=== PATIENT | male | born 1930 ===

== ENCOUNTER 2016-10-30 09:03 | Emergency (ER) | payer OTHER ==
[~2016-10-30] VITALS: Ht 172.7 cm; Wt 67.0 kg
[~2016-10-30 09:03] MED LIST: EPINEPHrine 0.1 MG/ML SYG ONE; ETOMIDATE 20 MG INJ ONE; NA BICARBONATE 8.4% 50 ML SYG ONE; NORepinephrine 8MG/250 ML BAG ONE
[2016-10-30] MEDS ORDERED: SODIUM CHLORIDE 0.9% 1L BAG IV* STA (09:17)
[2016-10-30] MEDS ORDERED: CEFEPIME 2GM/50 ML (PMX) 50 ML IVPB STA (09:17)
[2016-10-30 09:18] VITALS: Ht 172.7 cm; Wt 67.0 kg
--- NOTE | 2016-10-30 09:34 | RADRPT ---
PROCEDURE: XR Chest AP portable CLINICAL INDICATION: Possible sepsis, fcode stemi TECHNIQUE: An AP portable radiograph of the chest was submitted. COMPARISON: None. FINDINGS: Support Hardware: None Cardiovascular: The pacemaker generator is implanted within the right chest wall and dual lead super ior satisfactory position. The heart is moderately enlarged, the aorta appears tortuous while the t he peripheral pulmonary vasculature is unremarkable. Lung [place]: There is a diffuse relative increase in density at the right lung suspicious for a laye ring of pleural fluid. Subsegmental atelectatic changes suggested at the medial right lung base. Pleural Spaces: No pneumothorax is evident. Osseous Structures: The osseous elements are rarefied. Soft Tissues: The soft tissues appear unremarkable. IMPRESSION: 1. Cardiomegaly with aortic tortuosity without CHF. A pacemaker and dual leads are noted to be in place. 2. Mild diffuse increase in density to the right hemithorax suspicious for layering of pleural flui d with subsegmental atelectasis seen at the medial right lung base. Physician Niles Date Time Electronically viewed and signed by Physician Niles on 10/30/2016 09:34 /
[2016-10-30 10:02] LABS: ADD SCAN DIFF NO
--- NOTE | 2016-10-30 10:04 | ERA ---
ER Documentation Chief Complaint Date/Time DATE: 10/30/16 TIME: 09:59 Chief Complaint had 2 episodes while on the toilet HPI HPI: Patient is a 86-year-old male with history of diabetes who presents with sudden onset, intermittent, severe generalized weakness with episodes of syncope. Patient was recently seen in the ER last week for fever and found to have pneumonia. He was sent home with Levaquin 750 mg every other day. Last fever 48 hours ago. Last night the patient was noted to have excessive somnolence and to feel generally weak. Today he was found by his caregiver sitting on the toilet looking pale and became unresponsive, with shaking activity. En route to the ER EMS notes that the patient had a second episode of approximately 30 seconds of unresponsiveness. There is no seizure activity noted. Patient currently complains of shortness of breath, denies pain, denies fever, denies vomiting, denies nausea. ROS All systems reviewed and are negative except as per history of present illness. Allergies Allergies: Coded Allergies: No Known Allergy (Unverified , 10/30/16) PMhx/Soc Past medical history: Diabetes, no history of MS or CHF, no history of cancer Past surgical history: Pacemaker Social history: Denies smoking Hx Alcohol Use: No Hx Substance Use: No Hx Tobacco Use: No Smoking Status: Current every day smoker FmHx Family History: No coronary disease, No diabetes Physical Exam Vitals Vital Signs Date Time Temp Pulse Resp B/P Pulse Ox O2 Delivery O2 Flow Rate FiO2 10/30/16 10:32 20 100 10/30/16 09:30 Non Rebreather 12 10/30/16 09:18 97.7 102 30 62/49 98 Physical Exam Const: Lethargic, ill-appearing Head: Atraumatic Eyes: Normal Conjunctiva, no pallor or icterus ENT: Normal External Ears, Nose and Mouth. Neck: Full range of motion. No meningismus. Resp: Right lower lung field rales, no wheezes Cardio: Tachycardia, regular rhythm, no murmurs, no gallop Abd: Soft, non tender, non distended. No pulsatile mass Skin: No petechiae or rashes Back: No midline or flank tenderness Ext: No cyanosis, or edema Neur: Awake and alert, cranial nerves II through XII intact bilaterally, motor function intact grossly in 4 extremities. Psych: Normal Mood and Affect Result Diagram: 10/30/16 0940 10/30/16 0940 Results 24 hrs Laboratory Tests Test 10/30/16 09:40 10/30/16 10:03 White Blood Count 14.010^3/ul Red Blood Count 3.5310^6/ul Hemoglobin 9.8g/dl Hematocrit 32.5% Mean Corpuscular Volume 92.1fl Mean Corpuscular Hemoglobin 27.8pg Mean Corpuscular Hemoglobin Concent 30.2g/dl Red Cell Distribution Width 15.0% Platelet Count 84993^3/UL Mean Platelet Volume 9.2fl Neutrophils % 56.2% Lymphocytes % 32.2% Monocytes % 7.8% Eosinophils % 2.5% Basophils % 0.2% Nucleated Red Blood Cells % 0.0/100WBC Neutrophils # 7.910^3/ul Lymphocytes # 4.510^3/ul Monocytes # 1.110^3/ul Eosinophils # 0.410^3/ul Basophils # 0.010^3/ul Nucleated Red Blood Cells # 0.010^3/ul Sodium Level 142mmol/L Potassium Level 3.4mmol/L Chloride Level 109mmol/L Carbon Dioxide Level 22mmol/L Anion Gap 14 Blood Urea Nitrogen 33mg/dl Creatinine 1.70mg/dl Glucose Level 205mg/dl Lactic Acid Level 4.4mmol/L Calcium Level 8.0mg/dl Total Bilirubin 0.4mg/dl Direct Bilirubin 0.00mg/dl Indirect Bilirubin 0.4mg/dl Aspartate Amino Transf (AST/SGOT) 32IU/L Alanine Aminotransferase (ALT/SGPT) 28IU/L Alkaline Phosphatase 65IU/L Troponin I 0.013ng/ml Total Protein 5.2g/dl Albumin 2.4g/dl Globulin 2.80g/dl Albumin/Globulin Ratio 0.85 Urine Color LT. YELLOW Urine Clarity CLOUDY Urine pH 6.0 Urine Specific [place] 1.015 Urine Ketones NEGATIVE Urine Nitrite NEGATIVE Urine Bilirubin NEGATIVE Urine Urobilinogen 0.2 E.U./dL Urine Leukocyte Esterase 2+ Urine Microscopic RBC 0-2/HPF Urine Microscopic WBC >200/HPF Urine Squamous Epithelial Cells OCCASIONAL Urine Bacteria MODERATE Urine Hemoglobin 2+ Urine Glucose NEGATIVE% Urine Total Protein 1+ Current Medications Medications (Trade) Dose Ordered Sig/Bre Route PRN Reason Start Time Stop Time Status Last Admin Dose Admin Sodium Chloride 2020 ml 2,020 ml BOLUS OVER 2 HOURS STAT IV* 10/30/16 09:17 10/30/16 09:21 DC Cefepime HCl (Maxipime 2gm/50 ml (Pmx)) 50 ml @ 100 mls/hr ONCE STAT IVPB 10/30/16 09:17 10/30/16 09:46 DC Procedures/MDM EKG read by me: Time 905, rate 106 Rhythm: Atrial fibrillation [place]: Right superior axis Intervals: Wide QRS, prolonged QTC ST-T waves: no ischemic changes Ectopy: No Qwaves: No Impression: Rapid atrial fibrillation with wide QRS Endotracheal Intubation by me: Pre assessment performed. Pre-oxygenation performed with 100% oxygen RSI: Performed w/o complication or hypoxic events. Medications as ordered. Blade: Mac 4 ET Tube: 7.5 cm Depth: 23 cm at the lip Intubation confirmed by colorimetric CO2, equal breath sounds, quiet over the stomach. Chest X-ray not performed due to patient demise. Central Line Placement by me: Consent verbally obtained from son and daughter, sterilely draped, full prep, gown, glove, mask, time out performed. Anesthesia: 1% lidocaine locally Location: Left subclavian Device: Multiple lumen Technique: Seldinger technique. Secured with suture. Results: Venous return from all ports with easy saline flush. No complications. Guide wire retrieved and disposed of. Chest x-ray not obtained due to patient demise. ED course: Patient was hypotensive on ER arrival and ill-appearing, with respiratory distress. Sepsis protocol was initiated, and the patient was given IV fluid bolus. There was high suspicion for pneumonia given recent diagnosis of pneumonia, rales on exam, and tachypnea. CODE STATUS was discussed with family. Both his son and daughter indicated that the wanted the patient to have full treatment, including CPR and intubation if necessary. The son did produce a wheel from the patient from the year 1999 that indicated that the patient did not want intubation or CPR. I asked the son and daughter with a felt the patient's true wishes were, and if the patient had had a change in wishes since signing of his will. The son and daughter questioned the patient' s competence at the time of signing of the will, and stated that they believe the patient wanted full treatment. They requested that I provide full treatment to the patient. Given that the patient was not in the medical state to discuss goals of care, I proceeded to treat the patient is full code. The patient became increasingly bradycardic and hypotensive, and then became bradypneic. Therefore, the patient was intubated for respiratory failure. Shortly thereafter, the patient lost pulses. CPR was initiated, and ROSC was obtained after 2 rounds of CPR, during which time epinephrine and bicarb were administered. Left subclavian central line was placed and a Levophed drip was initiated. Patient subsequently lost pulses again, and CPR was again initiated , with additional epinephrine administered. Initial rhythm was PEA, but it pulse check the patient was in ventricular fibrillation. Patient was defibrillated at 200 J. CPR was resumed with additional epinephrine administered, however the patient could not be resuscitated. Family had expressed a desire for limited efforts at CPR, and it was felt that at this time further efforts would be futile and contrary to patient and family wishes. MDM: Patient is an 86-year-old male recently treated for pneumonia who had 2 syncopal episodes prior to ER arrival and was hypotensive on arrival in the ER. Initial septic workup and treatment was initiated, including IV fluid bolus. Patient has a pacemaker, and EKG showed wide complex rhythm that was not consistent with V. tach. The patient subsequently became increasingly hypotensive and bradycardic, and had inadequate respiratory effort, and went into cardiac arrest. Multiple attempts were made resuscitation, but the patient ultimately in the ER. The cause of syncope was not clear in the initial workup. It is possible that the patient had septic shock, given recent pneumonia and elevated lactic acid. However the patient did not have fever. Patient did have shortness of breath, and it is possible that he could have suffered a pulmonary embolism. However, I did not feel that administering TPA empirically was appropriate, given significant diagnostic uncertainty. It is possible that the patient had a cardiac event, however there is no report of chest pain, and there is no ischemic findings on EKG. According to family and the patient's PMD, the patient had multiple underlying medical issues, all of which could have contributed to his ultimate . There is no evidence of significant acidosis or hypo-hyperkalemia Critical Care Time: 45 minutes Treatments/Evaluations: Close monitoring and treatment of unstable vital signs, cardiorespiratory, and neurologic status, while maintaining tight balance of fluid, respiratory, and cardiac interventions. This time includes discussing the case with the patient and the patient's family. This time does not include all procedures stated elsewhere in this record. This time also includes reviewing old records, labs and radiological studies. This time includes examining and re-examining the patient. Additionally, this time also includes arranging care with admitting and consulting physicians. Departure Diagnosis: Primary Impression: Cardiopulmonary arrest Additional Impressions: Syncope Hypotension Pneumonia Acute respiratory failure Condition: Critical () GORDO TORO MD Oct 30, 2016 10:04
[2016-10-30 10:12] LABS: BASOPHILS % 0.2 % (0.0-2.0); EOSINOPHILS # 0.4 10^3/ul (0.0-0.5); EOSINOPHILS % 2.5 % (0.0-7.0); HEMATOCRIT 32.5 % (42.0-52.0); HEMOGLOBIN 9.8 g/dl (14.0-18.0); LYMPHOCYTES # 4.5 10^3/ul (0.8-2.9); LYMPHOCYTES % 32.2 % (15.0-51.0); MEAN CORPUSCULAR HEMOGLOBIN 27.8 pg (29.0-33.0); MEAN CORPUSCULAR HGB CONC 30.2 g/dl (32.0-37.0); MEAN CORPUSCULAR VOLUME 92.1 fl (82.0-101.0); MEAN PLATELET VOLUME 9.2 fl (7.4-10.4); MONOCYTE # 1.1 10^3/ul (0.3-0.9); MONOCYTES % 7.8 % (0.0-11.0); NEUTROPHIL # 7.9 10^3/ul (1.6-7.5); NEUTROPHILS % 56.2 % (39.0-77.0); PLATELET COUNT 230 10^3/UL (140-415); RED BLOOD COUNT 3.53 10^6/ul (4.70-6.10)
[2016-10-30 10:25] LABS: ALBUMIN 2.4 g/dl (3.3-4.9); POTASSIUM 3.4 mmol/L (3.5-5.1)
[2016-10-30 10:27] LABS: CREATININE 1.7 mg/dl (0.61-1.24)
[2016-10-30 10:28] LABS: ALBUMIN/GLOBULIN RATIO 0.85; BILIRUBIN,INDIRECT 0.4 mg/dl (0-1.1); BILIRUBIN,TOTAL 0.4 mg/dl (0.2-1.3); TOTAL PROTEIN 5.2 g/dl (6.1-8.1)
[2016-10-30 10:32] VITALS: RESP 20
[2016-10-30 10:40] LABS: TROPONIN-I 0.013 ng/ml (0.00-0.12)
[2016-10-30 10:42] LABS: ADD UMIC YES; URINE BILIRUBIN (Dip) NEGATIVE (NEGATIVE); URINE BLOOD (Dip) 2+ (NEGATIVE); URINE COLOR LT. YELLOW (YELLOW); URINE GLUCOSE (Dip) NEGATIVE (NEGATIVE); URINE KETONES (Dip) NEGATIVE (NEGATIVE); URINE LEUKOCYTE ESTERASE (Dip) 2+ (NEGATIVE); URINE NITRITE (Dip) NEGATIVE (NEGATIVE); URINE TOTAL PROTEIN (Dip) 1+ (NEGATIVE); URINE UROBILINOGEN (Dip) 0.2 E.U./dL (0.1-1.0)
[2016-10-30 11:17] LABS: BACTERIA,URINE MODERATE; SQUAMOUS EPITHELIAL CELL,UR OCCASIONAL; URINE RBCS 0-2 /HPF (0)
== END 2016-10-30 15:37 | disposition expired ==
LOC: E/R 09:03
DX: I46.9 Cardiac arrest, cause unspecified (principal); I95.9 Hypotension, unspecified; J18.9 Pneumonia, unspecified organism; J96.00 Acute respiratory failure, unspecified whether with hypoxia or hypercapnia; F17.210 Nicotine dependence, cigarettes, uncomplicated; E11.9 Type 2 diabetes mellitus without complications; E03.9 Hypothyroidism, unspecified; Z95.0 Presence of cardiac pacemaker
CPT/HCPCS: 31500; 36556; 71010; 80053; 81001; 83605; 84484; 85025; 87040; 87086; 92950; 93005; 94002; J0171; J7030; 36415; 81003